=== PATIENT | female | born 1940 | race Two or more races ===

== ENCOUNTER 2020-05-28 06:00 | Day surgery (SDC) | payer OTHER ==
[~2020-05-28 06:00] MED LIST: ATACAND HCT 161 EACH PO; GABAPENTIN800 M1 PO; MYRBETRIQ50 MG PO; NORVASC2.5 MG PO; PRIMIDONE50 MG PO; ROSUVASTATIN CA20 MG PO; TOPROL XL50 M1 PO; XARELTO20 MG PO
[2020-05-28] MEDS ORDERED: LOVENOX40 MG/0.4 SUBCUTANEO (08:37)
[2020-05-28] MEDS ORDERED: IBU400 MG PO (08:37)
== END 2020-05-28 13:40 | disposition home or self-care (01) ==
LOC: CIR.AMB 06:00
PROVIDERS: ATTEND Obstetrics & Gynecology Gynecology
DX: N84.0 Polyp of corpus uteri (principal); Z20.828 Contact with and (suspected) exposure to other viral communicable diseases